=== PATIENT | male | born 1970 | race Caucasian/White ===

== ENCOUNTER 2025-01-14 22:38 | Inpatient (IN) | payer BC, OTHER ==
[2025-01-14] MEDS: ASPIRIN 81 MG PO STA (22:59)
[2025-01-14] MEDS: NITROGLYCERIN SL TABS 0.4 MG TAB SUBLINGUAL STA ×2 (22:59→23:18)
[2025-01-14] MEDS: METOPROLOL TARTRATE 25 MG TAB PO STA (23:00)
[2025-01-14] MEDS: SODIUM CHLORIDE 0.9% 500 ML 500 ML IV STA (23:03)
--- NOTE | 2025-01-14 23:04 | ED ---
Chest Pain HPI - General Chief Complaint: Chest Pain Stated Complaint: Chest pain Time Seen by Provider: 01/14/25 22:46 Source: patient Mode of arrival: ambulatory Limitations: no limitations - History of Present Illness Initial Comments: This patient is 54-year-old man with history of previous MO at age 43, who presents with complaint that he believes he is having another MO. He states that he started walking tonight and about 20 minutes ago developed substernal chest pain that does radiate to his neck into his left arm. He was feeling short of breath and also sweaty. The patient proceeded to come here. He continues to have the chest pain. The patient states that he is a heavy smoker. The patient notes that over the preceding 2 to 3 days with exertion he has had similar pain though mild and not sustained has tonight's episode. MD Complaint: chest pain Onset/Timin -: minutes(s) Onset: during exertion Pain Location: substernal Pain Radiation: LUE, neck Severity: severe Quality: aching, heaviness Consistency: constant Improves With: nothing Anginal Symptoms: diaphoresis, dyspnea - Related Data Previous Rx's Medication Instructions Recorded Aspirin 81 mg PO DAILY tab 01/18/25 Atorvastatin [Lipitor] 80 mg PO DAILY 7 Days #7 tab 01/18/25 Dapagliflozin Propanediol [Farxiga] 10 mg PO DAILY 7 Days #7 tab 01/18/25 Losartan [Cozaar] 12.5 mg PO DAILY 7 Days #7 tab 01/18/25 Metoprolol Tartrate [Lopressor] 25 mg PO BID 7 Days #14 tab 01/18/25 Nitroglycerin Sl Tabs [Nitrostat] 0.4 mg SUBLINGUAL Q5M PRN #10 tab 01/18/25 Ticagrelor [Brilinta] 90 mg PO BID 7 Days #14 tab 01/18/25 metFORMIN HCL [Glucophage] 500 mg PO BID-W/MEALS 7 Days #14 01/18/25 tab Allergies Allergy/AdvReac Type Severity Reaction Status Date / Time erythromycin base AdvReac Rash/Hives Verified 01/15/25 10:00 Review of Systems ROS Statement: Those systems with pertinent positive or pertinent negative responses have been documented in the HPI. ROS Other: All systems not noted in ROS Statement are negative. Constitutional: Denies: fever, chills, weakness Respiratory: Denies: cough, dyspnea Cardiovascular: Reports: chest pain. Denies: palpitations, orthopnea, edema, syncope Gastrointestinal: Reports: nausea. Denies: abdominal pain, vomiting Genitourinary: Denies: dysuria, hematuria Musculoskeletal: Denies: back pain Skin: Denies: rash Neurological: Denies: headache, weakness, numbness Past Medical History Past Medical History: Chest Pain / Angina, Hyperlipidemia, Hypertension, Myocardial Infarction (MO) Last Myocardial Infarction Date:: Pt states he had MO 05/2012. History of Any Multi-Drug Resistant Organisms: None Reported Past Surgical History: Heart Catheterization Additional Past Surgical History / Comment(s): Hx cardiac cath 05/2012. Past Anesthesia/Blood Transfusion Reactions: No Reported Reaction Past Psychological History: No Psychological Hx Reported Smoking Status: Current every day smoker Past Alcohol Use History: Occasional Past Drug Use History: None Reported - Past Family History Father Family Medical History: Coronary Artery Disease (CAD) Additional Family Medical History / Comment(s): Father at 51 from cardiomyopathy. Mother Family Medical History: No Reported History Additional Family Medical History / Comment(s): Mother is 63 yrs old. General Exam Limitations: no limitations General appearance: alert, in no apparent distress Head exam: Present: atraumatic, normocephalic Eye exam: Present: normal appearance. Absent: scleral icterus, conjunctival injection ENT exam: Present: normal oropharynx Neck exam: Present: normal inspection Respiratory exam: Present: normal lung sounds bilaterally. Absent: respiratory distress, wheezes, rales, rhonchi, stridor, accessory muscle use Cardiovascular Exam: Present: regular rate, normal rhythm, normal heart sounds. Absent: systolic murmur, diastolic murmur, rubs, gallop GI/Abdominal exam: Present: soft. Absent: distended, tenderness, guarding, rebound, rigid, mass Extremities exam: Present: normal inspection, normal capillary refill. Absent: pedal edema, calf tenderness Back exam: Present: normal inspection. Absent: CVA tenderness (R), CVA tenderness (L) Neurological exam: Present: alert Skin exam: Present: warm, dry, intact, normal color. Absent: rash Course Vital Signs 01/14/25 01/14/25 01/15/25 22:39 23:20 00:27 Temperature 98 F Pulse Rate 127 H 105 H 106 H Respiratory 18 18 18 Rate Blood Pressure 164/108 118/68 137/89 O2 Sat by Pulse 96 94 L 94 L Oximetry Chest Pain MDM - MDM The patient's initial twelve-lead ECG shows rhythm of sinus tachycardia rate 121 bpm. Normal axis. The patient does have pattern concerning for posterior MO, there are ST depressions in leads V2 through V4. The case is discussed with Dr. Billingsley. The patient receiving medications and we are performing posterior twelve-lead ECG to discuss with cardiology upon completion. The patient had chest x-ray that I interpreted as negative for acute infiltrate, pneumothorax, congestive heart failure Was pt. sent in by a medical professional or institution (, PA, CIVIL DRAFTSMAN, urgent care, hospital, or [facility]...) When possible be specific @ -[No] Did you speak to anyone other than the patient for history (EMS, parent, family, police, friend...)? What history was obtained from this source @ -[No] Did you review nursing and triage notes (agree or disagree)? Why? @ -[I reviewed and agree with nursing and triage notes] Were old charts reviewed (outside hosp., previous admission, EMS record, old EKG, old radiological studies, urgent care reports/EKG's, [facility] records)? Report findings @ -[No old charts were reviewed] Differential Diagnosis (chest pain, altered mental status, abdominal pain women, abdominal pain men, vaginal bleeding, weakness, fever, dyspnea, syncope, headache, dizziness, GI bleed, back pain, seizure, CVA, palpatations, mental health, musculoskeletal)? @ -[Differential Chest Pain: Stable Angina, Unstable Angina, STEMI, NSTEMI Aortic Dissection, Pneumothorax, Musculoskeletal, Esophageal Spasm GERD, Cholecystitis, Pancreatitis, Zoster, this is not meant to be an all-inclusive list. EKG interpreted by me (3pts min.). @ -[I interpreted as above] X-rays interpreted by me (1pt min.). @ -[I interpreted as above CT interpreted by me (1pt min.). @ -[None done] U/S interpreted by me (1pt. min.). @ -[None done] What testing was considered but not performed or refused? (CT, X-rays, U/S, labs)? Why? @ -[None] What meds were considered but not given or refused? Why? @ -[None] Did you discuss the management of the patient with other professionals (professionals i.e. DrIvan, PA, CIVIL DRAFTSMAN, lab, RT, psych nurse, social work associate, instrument technician, teacher, chief juvenile probation officer, director of casework)? Give summary @ -[No] Was smoking cessation discussed for >3mins.? @ -[No] Was critical care preformed (if so, how long)? @ -[Yes, 35 minutes Were there social determinants of health that impacted care today? How? (Homelessness, low income, unemployed, alcoholism, drug addiction, transportation, low edu. Level, literacy, decrease access to med. care, residential, rehab)? @ -[No] Was there de-escalation of care discussed even if they declined (Discuss DNR or withdrawal of care, Hospice)? DNR status @ -[No] What co-morbidities impacted this encounter? (DM, HTN, Smoking, COPD, CAD, Cancer, CVA, ARF, Chemo, Hep., AIDS, mental health diagnosis, sleep apnea, morbid obesity)? @ -[Active smoking. History of CAD Was patient admitted / discharged? Hospital course, mention meds given and route, prescriptions, significant lab abnormalities, going to OR and other pertinent info. @ -[Patient is 54-year-old man here with chest pain concerning for acute coronary syndrome. Case discussed with cardiology and as the patient continued to have chest pain he was taken to the [facility]. Undiagnosed new problem with uncertain prognosis? @ -[No] Drug Therapy requiring intensive monitoring for toxicity (Heparin, Nitro, Insulin, Cardizem)? @ -[Heparin Were any procedures done? @ -[No] Diagnosis/symptom? @ -Acute coronary syndrome NSTEMI Hyperglycemia in diabetic patient Acute, or Chronic, or Acute on Chronic? @ -[Acute Uncomplicated (without systemic symptoms) or Complicated (systemic symptoms)? @ -[Uncomplicated Side effects of treatment? @ -[No] Exacerbation, Progression, or Severe Exacerbation? @ -[No] Poses a threat to life or bodily function? How? (Chest pain, USA, MO, pneumonia, PE, COPD, DKA, ARF, appy, cholecystitis, CVA, Diverticulitis, Homicidal, Suicidal, threat to staff... and all critical care pts) @ -[Yes required cardiology acute intervention All treatments are based on ideal body weight as in ED triage Disposition Clinical Impression: NSTEMI (non-ST elevated myocardial infarction), Acute coronary syndrome, Hyperglycemia Disposition: ADMITTED IP TO THIS HOSP
[2025-01-14 23:07] LABS: Basophils # (A) 0.10 10*3/uL (0.00-0.10); Basophils % (A) 1.0 %; Eosinophils # (A) 0.25 10*3/uL (0.04-0.35); Eosinophils % (A) 2.4 %; HCT 44.4 % (39.6-50.0); HGB 15.8 g/dL (13.0-17.0); Lymphocytes # (A) 3.59 10*3/uL (0.90-5.00); Lymphocytes % (A) 34.9 %; MCH 31.5 pg (27.0-32.0); MCHC 35.6 g/dL (32.0-37.0); MCV 88.6 fL (80.0-97.0); Monocytes # (A) 1.13 10*3/uL (0.20-1.00); Monocytes % (A) 11.0 %; Neutrophils # (A) 5.15 10*3/uL (1.80-7.70); Neutrophils % (A) 50.1 %; Platelet Count 211 10*3/uL (140-440); RBC 5.01 10*6/uL (4.40-5.60); RDW 13.2 % (11.5-14.5); WBC 10.28 10*3/uL (4.50-10.00)
[2025-01-14] MEDS ORDERED: HEPARIN SODIUM 1,000 UN/ML (10ML VL) IV PRN (23:11)
[2025-01-14] MEDS: METOPROLOL TARTRATE 5 MG/5 ML VIAL IVP SCH (23:16)
[2025-01-14 23:17] LABS: INR 0.9 (<1.2); Partial Thromboplastin Time 24.1 sec (22.0-30.0); Prothrombin Time 9.9 sec (10.0-12.5)
[2025-01-14 23:20] LABS: ALT 26 U/L (4-49); AST 29 U/L (17-59); African American GFR (CKD) >90 (>60 ml/min/1.73 sqM); Albumin 4.6 g/dL (3.5-5.0); Alkaline Phosphatase 111 U/L (38-126); Anion Gap 18 mmol/L; Blood Urea Nitrogen 10 mg/dL (9-20); Calcium 9.8 mg/dL (8.4-10.2); Carbon Dioxide 19 mmol/L (22-30); Chloride 96 mmol/L (98-107); Glucose 414 mg/dL (74-99); Magnesium 1.8 mg/dL (1.6-2.3); Non-African American GFR(CKD) >90 (>60 ml/min/1.73 sqM); Potassium 4.4 mmol/L (3.5-5.1); Sodium 133 mmol/L (137-145); Total Protein 7.2 g/dL (6.3-8.2)
[2025-01-14] MEDS: HEPARIN SOD,PORK IN 0.45% NACL 25,000 UNIT in 0.45% NACL 1 250ML.BAG IV SCH (23:46)
[2025-01-14] MEDS: HEPARIN SODIUM 1,000 UN/ML (10ML VL) IV ONE (23:50)
[2025-01-14] MEDS: NITROGLYCERIN-D5W PMX 50 MG in DEXTROSE/WATER 1 250ML.BAG IV ONE (23:51)
--- NOTE | 2025-01-15 00:17 | XR ---
EXAM: XR Chest, 1 View CLINICAL HISTORY: left arm pain, chest pain, neck pain that started 10 mins ago chest pain TECHNIQUE: Frontal view of the chest. COMPARISON: No relevant prior studies available. FINDINGS: Lungs: Subtle patchy airspace opacities over bilateral middle and lower lung zones. Lungs are slightly underinflated. Pleural space: Unremarkable. Mediastinum: Unremarkable. Normal mediastinal contour. Bones/joints: No acute findings. IMPRESSION: Subtle patchy airspace opacities over bilateral middle and lower lung zones can represent atelectasis and/or pneumonia.
[2025-01-15] MEDS: MORPHINE SULFATE 4 MG/ML SYRINGE IV STA (00:49)
--- NOTE | 2025-01-15 00:53 | P.CRDCN ---
History of Present Illness History of present illness: HISTORY OF PRESENTING ILLNESS This is a pleasant 54-year-old with past medical history significant for CAD status post PCI with NH 2013, hypertension, hyperlipidemia. He presents secondary to acute onset of chest pain radiating to his neck and down his left arm with associated shortness of breath and diaphoresis. This occurred when he was walking and approximately 20 minutes prior to arrival. He admits this felt somewhat similar to his prior NH. He denies any other symptoms recently and denies any fevers, chills, cough. EKG showed sinus tachycardia with diffuse ST depressions V4 through V6. Initially was improved to a 3 with giving nitroglycerin and metoprolol. Additionally his heparin pressures 60s over 100. He is still having ongoing chest pain. Troponin 0.3, creatinine 0.7, hemoglobin 15. He states he has not been taking any of his medications over the last 3 years. He is diabetic and does not take medications. He states he ran out a few years ago and then never started taking them again. He does not follow with a doctor. He states he has been having off-and-on symptoms over the last 1 year usually mostly with exertion however over the last 2 weeks has been having more episodes. He does smoke 2 packs/day. REVIEW OF SYSTEMS At the time of my exam: CONSTITUTIONAL: Denies fever or chills. CARDIOVASCULAR: +chest pain, +shortness of breath, no orthopnea, PND or palpitations. RESPIRATORY: Denies cough. GASTROINTESTINAL: Denies abdominal pain, diarrhea, constipation, nausea or vomiting. MUSCULOSKELETAL: Denies myalgias. NEUROLOGIC: Denies numbness, tingling or weakness. ENDOCRINE: Denies fatigue, weight change, polydipsia or polyurina. GENITOURINARY: Denies burning, hematuria or urgency with micturation. HEMATOLOGIC: Denies history of anemia or bleeding. PHYSICAL EXAMINATION Vital signs reviewed. CONSTITUTIONAL: No apparent distress. HEENT: Head is normocephalic. Pupils are equal, round. Sclerae anicteric. Mucous membranes of the mouth are moist. No JVD. No carotid bruit. CHEST EXAMINATION: Lungs are clear to auscultation. No chest wall tenderness is noted on palpation or with deep breathing. HEART EXAMINATION: Regular rate and rhythm. S1, S2 heard. No murmurs, gallops or rub. ABDOMEN: Soft, nontender. Positive bowel sounds. EXTREMITIES: 2+ peripheral pulses, no lower extremity edema and no calf tenderness. NEUROLOGIC EXAMINATION: Patient is awake, alert and oriented x3. ASSESSMENT Non-STEMI with ongoing chest pain CAD status post PCI 2012 Hypertension Hyperlipidemia Diabetes mellitus type 2 Noncompliance Tobacco abuse Family history of CAD PLAN Patient with typical symptoms and EKG with diffuse ST depressions. He is having ongoing chest pain with type I non-STEMI despite aspirin, heparin, beta-lorraine and nitroglycerin. Therefore recommend urgent heart catheterization and patient agreeable. Check 2D echo. Further recommendations to follow. Past Medical History Past Medical History: Chest Pain / Angina, Hyperlipidemia, Hypertension, Myocardial Infarction (NH) Last Myocardial Infarction Date:: Pt states he had NH 05/2012. History of Any Multi-Drug Resistant Organisms: None Reported Past Surgical History: Heart Catheterization Additional Past Surgical History / Comment(s): Hx cardiac cath 05/2012. Past Anesthesia/Blood Transfusion Reactions: No Reported Reaction Past Psychological History: No Psychological Hx Reported Smoking Status: Current every day smoker Past Alcohol Use History: Occasional Past Drug Use History: None Reported - Past Family History Father Family Medical History: Coronary Artery Disease (CAD) Additional Family Medical History / Comment(s): Father at 51 from cardiomyopathy. Mother Family Medical History: No Reported History Additional Family Medical History / Comment(s): Mother is 63 yrs old. Medications and Allergies Home Medications Medication Instructions Recorded Confirmed Type Atorvastatin [Lipitor] 80 mg PO DAILY 03/21/14 03/21/14 History Clopidogrel [Plavix] 75 mg PO DAILY 03/21/14 03/21/14 History lisinopriL [Zestril] 10 mg PO DAILY 03/21/14 03/21/14 History Aspirin 325 mg PO DAILY #30 tab 03/22/14 Rx Isosorbide Mononitrate ER [Imdur] 30 mg PO DAILY #30 tab.er.24h 03/22/14 Rx Nitroglycerin Sl Tabs [Nitrostat] 0.4 mg SUBLINGUAL Q5M PRN #30 tab 03/22/14 Rx Allergies Allergy/AdvReac Type Severity Reaction Status Date / Time erythromycin base AdvReac Rash/Hives Verified 01/14/25 22:41 Physical Exam Vitals: Vital Signs Temp Pulse Resp BP Pulse Ox 01/15/25 00:27 106 H 18 137/89 94 L 01/14/25 23:20 105 H 18 118/68 94 L 01/14/25 22:39 98 F 127 H 18 164/108 96 Intake and Output 01/14/25 01/14/25 01/15/25 14:59 22:59 06:59 Other: Weight 108.862 kg Results 01/14/25 22:52 01/14/25 22:52 Cardiac Enzymes 01/14/25 01/14/25 Range/Units 22:52 22:52 AST 29 (17-59) U/L Troponin I 0.342 H* (0.000-0.034) ng/mL Coagulation 01/14/25 Range/Units 22:52 PT 9.9 L (10.0-12.5) sec APTT 24.1 (22.0-30.0) sec CBC 01/14/25 Range/Units 22:52 WBC 10.28 H (4.50-10.00) 10*3/uL RBC 5.01 (4.40-5.60) 10*6/uL Hgb 15.8 (13.0-17.0) g/dL Hct 44.4 (39.6-50.0) % Plt Count 211 (140-440) 10*3/uL Comprehensive Metabolic Panel 01/14/25 Range/Units 22:52 Sodium 133 L (137-145) mmol/L Potassium 4.4 (3.5-5.1) mmol/L Chloride 96 L (98-107) mmol/L Carbon Dioxide 19 L (22-30) mmol/L BUN 10 (9-20) mg/dL Creatinine 0.73 (0.66-1.25) mg/dL Glucose 414 H (74-99) mg/dL Calcium 9.8 (8.4-10.2) mg/dL AST 29 (17-59) U/L ALT 26 (4-49) U/L Alkaline Phosphatase 111 (38-126) U/L Total Protein 7.2 (6.3-8.2) g/dL Albumin 4.6 (3.5-5.0) g/dL Current Medications Generic Name Dose Route Start Last Admin Trade Name Freq PRN Reason Stop Dose Admin Heparin Sodium (Porcine) 0 unit 01/14/25 23:11 Heparin Sodium 1,000 Un/Ml (10ml Vl) IV PER PROTOCOL PRN Low PTT Protocol Heparin Sodium/Sodium Chloride 250 mls @ 10.004 mls/hr 01/14/25 23:15 01/14/25 23:46 25,000 unit/ Sodium Chloride IV 9.19 units/kg/hr .Q24H SEBASTIÁN 10.004 mls/hr Administration Protocol 9.19 UNITS/KG/HR Nitroglycerin/Dextrose 50 mg/ 250 mls @ 3 mls/hr 01/14/25 23:12 01/14/25 23:51 IV Solution IV 01/15/25 23:11 5 mcg/min .Q24H ONE 1.5 mls/hr Administration Protocol 10 MCG/MIN Intake and Output 01/14/25 01/14/25 01/15/25 14:59 22:59 06:59 Other: Weight 108.862 kg Patient Weight 01/15/25 06:59 Weight 108.862 kg 01/14/25 22:52 01/14/25 22:52
[2025-01-15] MEDS: fentaNYL (PF) 50 MCG/1 ML VIAL IVP ONE (00:55)
[2025-01-15] MEDS: MIDAZOLAM 2 MG/2 ML VIAL IVP ONE (00:56)
[2025-01-15] MEDS: LIDOCAINE 1% INJ 10MG/ML (20 ML MDV) SQ ONE (00:57)
[2025-01-15] MEDS: SODIUM CHLORIDE 0.9% 1,000 ML IV ONE (00:58)
[2025-01-15] MEDS: VERAPAMIL SYRINGE (5 MG/10 ML) INTRAARTER ONE (01:02)
[2025-01-15] MEDS: HEPARIN SODIUM 1,000 UN/ML (10ML VL) IVP ONE (01:06)
[2025-01-15] MEDS: TICAGRELOR 90 MG TAB PO ONE (01:20)
[2025-01-15] MEDS: NITROGLYCERIN 1000MCG/10ML SYRINGE INTRACORON ONE (01:39)
[2025-01-15] MEDS: HEPARIN SODIUM,PORCINE 10,000 UNIT in SODIUM CHLORIDE 0.9% 1,000 ML IRRIGATION ONE (01:44)
[2025-01-15] MEDS: HEPARIN SODIUM,PORCINE (1 ML) 2,500 UNIT in SODIUM CHLORIDE 0.9% 250 ML IRRIGATION ONE (01:45)
[2025-01-15] MEDS: IOPAMIDOL-370 100ML BTL INJ ONE ×2 (01:47→01:48)
[2025-01-15] MEDS ORDERED: ZOLPIDEM 5 MG TAB PO PRN (01:57)
[2025-01-15] MEDS ORDERED: RX INFO: IV CONTRAST WAS GIVEN 1 EACH MISC MISCELLANE PRN (01:57)
[2025-01-15] MEDS ORDERED: ATROPINE SULFATE 0.1 MG/ML 10ML SYRINGE IV PRN (01:57)
[2025-01-15] MEDS ORDERED: MAG HYDROX/AL HYDROX/SIMETH 30 ML CUP PO PRN (01:57)
--- NOTE | 2025-01-15 01:58 | P.PRCINT ---
Percutaneous Coronary Int. - Percutaneous Coronary Intervention Percutaneous Coronary Intervention: PROCEDURES PERFORMED: Left heart catheterization, bilateral coronary angiography, ultrasound guided arterial access, PCI distal RCA into the PDA with a 3.0 x 33 mm Xience CORWIN, postdilated with a 3.5 mm noncompliant balloon. Penumbra aspiration thrombectomy RCA. Intravascular ultrasound RCA. INDICATION: Non-STEMI with ongoing chest pain CONSENT:I have discussed the risks, benefits and alternative therapies for the above-mentioned procedure and for both sedation/analgesia as well as necessary blood product administration, if indicated, as they pertain to this patient. The patient has indicated understanding and acceptance of the risks and procedures discussed. PROCEDURE: After the risks, benefits and alternatives of the above mentioned procedure explained in detail with the patient, informed consent was obtained. Patient was taken to the catheterization lab and prepped and draped in usual fashion. Ultrasound guidance was used to assess for arterial access. 1% lidocaine was used to anesthetize the right radial artery. A 6-Norwegian sheath was placed in the right radial artery using modified Seldinger technique and ultrasound guidance. Left coronary angiography was performed with a 5-Norwegian JL 3.5 catheter and right coronary angiography was performed with a 5-Norwegian FR5 catheter in various views. A 5-Norwegian FR5 catheter was inserted into the left ventricle and pressure measurements were obtained. The decision was made to perform PCI of the RCA. Heparin was given. A 6 Norwegian AL 0.75 guide was used to engage the RCA. A 0.014 BMW wire was advanced into the distal PDA and attempted to be advanced into the PLV however appeared to be TAX SENIOR ASSOCIATE with collaterals to the PLV from the left sided system. Penumbra aspiration thrombectomy was performed x 1 pass. Predilation was performed with 3.0 mm balloon. Intravascular ultrasound showed diffuse disease throughout the entire artery with most normal area 3.5 mm proximally and 3.0 mm distally past the PDA. A 3.0 x 33 mm drug-eluting stent was placed from the distal RCA into the PDA. Intravascular ultrasound showed well-expanded stent distally however some underexpansion proximally. The proximal and mid portions of the stent were postdilated with a 3.5 mm noncompliant balloon. Final angiograms were performed. Preintervention there was 99% stenosis and BING I flow and postintervention there was less than 10% stenosis and BING-3 flow. The right radial sheath was removed and a TR band was placed with hemostasis achieved. The patient tolerated the procedure well. Patient was transported back to the post catheterization holding area in stable condition. Conscious Sedation: Patient was monitored under the direct supervision of myself for conscious sedation using Versed and fentanyl for a total duration of 45 minutes HEMODYNAMICS: Aorta: 118/72 LV: 115/5, LVEDP 16 SELECTIVE CORONARY ARTERIOGRAPHY: LEFT MAIN: The left main is a large caliber vessel which bifurcates into the LAD and circumflex. There is distal left main 40% stenosis. LEFT ANTERIOR DESCENDING CORONARY ARTERY: LAD is a large caliber vessel which wraps around to the apex. There is diffuse disease of the proximal and mid LAD with more focal mid LAD 95% stenosis at the site of a moderate caliber diagonal 1 branch. Otherwise there is mild diffuse 20 to 30% stenosis. LEFT CIRCUMFLEX CORONARY ARTERY: Left circumflex is a moderate caliber vessel w ith 30 to 40% stenosis. There are [id number] collaterals to the PLV RIGHT CORONARY ARTERY: The right coronary artery is a large caliber vessel which gives off a PDA and PLV branch and is the dominant vessel. There is diffuse 20 to 30% stenosis and more focal tandem 95% and 99% stenosis of the distal RCA just prior to the bifurcation of the PLV. The PLV has 100% stenosis with what appears to be collaterals from the left to right. FINAL IMPRESSION: 1. CAD as described above including left main 40% stenosis, mid LAD 95% bifurcation stenosis, 99% RCA stenosis, 100% PLV stenosis with [id number] collaterals. 2. Normal left sided filling pressures 3. Status post PCI distal RCA into the PDA with a 3.0 x 33 mm Xience CORWIN, postdilated with a 3.5 mm noncompliant balloon PLAN: 1. Aggressive risk factor modification per most recent ACC/AHA guidelines. 2. Continue aspirin and Brilinta for 12 months 3. Staged PCI of LAD/further assessment of left main disease however appears to be left main 40% stenosis 4. Tobacco cessation discussed in detail with patient. Gave patient information on [email or web address] quit line. 5. Goal LDL less than 70
[2025-01-15 02:01] LABS: Glucose,Whole Blood 364 mg/dL (70-110)
[2025-01-15] MEDS: SODIUM CHLORIDE 0.9% 1,000 ML in EMPTY BAG 1 BAG IV SCH (03:28)
[2025-01-15 03:36] LABS: Basophils # (A) 0.07 10*3/uL (0.00-0.10); Basophils % (A) 0.9 %; Eosinophils # (A) 0.16 10*3/uL (0.04-0.35); Eosinophils % (A) 2.0 %; HCT 40.0 % (39.6-50.0); HGB 13.7 g/dL (13.0-17.0); Lymphocytes # (A) 2.35 10*3/uL (0.90-5.00); Lymphocytes % (A) 29.9 %; MCH 31.4 pg (27.0-32.0); MCHC 34.3 g/dL (32.0-37.0); MCV 91.7 fL (80.0-97.0); Monocytes # (A) 0.64 10*3/uL (0.20-1.00); Monocytes % (A) 8.2 %; Neutrophils # (A) 4.58 10*3/uL (1.80-7.70); Neutrophils % (A) 58.4 %; Platelet Count 176 10*3/uL (140-440); RBC 4.36 10*6/uL (4.40-5.60); RDW 13.0 % (11.5-14.5); WBC 7.85 10*3/uL (4.50-10.00)
[2025-01-15 04:02] LABS: INR 0.9 (<1.2); Prothrombin Time 10.4 sec (10.0-12.5)
[2025-01-15 05:33] LABS: Partial Thromboplastin Time >200.0 sec (22.0-30.0)
[2025-01-15 06:59] LABS: Glucose,Whole Blood 359 mg/dL (70-110)
[2025-01-15] MEDS: INSULIN LISPRO (HumaLOG) 100 UNIT/ML 10 mL VL SQ SCH (07:01)
[2025-01-15] MEDS: LOSARTAN 25 MG TAB PO SCH (09:00)
[2025-01-15] MEDS: TICAGRELOR 90 MG TAB PO SCH (09:00)
[2025-01-15] MEDS: ASPIRIN 81 MG PO SCH (09:00)
[2025-01-15] MEDS: ATORVASTATIN 80 MG TAB PO SCH (09:00)
[2025-01-15] MEDS: METOPROLOL TARTRATE 25 MG TAB PO SCH (09:00)
[2025-01-15 11:08] LABS: Glucose,Whole Blood 270 mg/dL (70-110)
--- NOTE | 2025-01-15 12:03 | P.HPIM ---
History of Present Illness Patient pleasant 54-year-old male came with complaints of chest pain which is typical in nature patient has EKG findings from V4-V6 which is ST depressions. Patient has mildly elevated troponin of 0.342. Because of continued chest pain patient was taken to [facility] Installer Helper and was found to have left main 40% stenosis and mid LAD 95% stenosis at bifurcation, 99% stenosis of RCA 100% PLV stenosis with [id number] collaterals. Patient underwent a PCI of distal RCA into PDA. Patient is presently on dual antiplatelet therapy statin PIERRE inhibitor. Plan is staged intervention. Patient had history of coronary artery disease but never h ad any stents in the past. Patient does smoke and extensive smoking cessation counseling was provided. REVIEW OF SYSTEMS: All other systems are negative except those mentioned in the HPI PHYSICAL EXAMINATION: GENERAL: The patient is alert and oriented x3, not in any acute distress. Well developed, well nourished. HEENT: Pupils are round and equally reacting to light. EOMI. No scleral icterus. No conjunctival pallor. Normocephalic, atraumatic. No pharyngeal erythema. No thyromegaly. CARDIOVASCULAR: S1 and S2 present. No murmurs, rubs, or gallops. PULMONARY: Chest is clear to auscultation, no wheezing or crackles. ABDOMEN: Soft, nontender, nondistended, normoactive bowel sounds. No palpable organomegaly. MUSCULOSKELETAL: No joint swelling or deformity. EXTREMITIES: No cyanosis, clubbing, or pedal edema. NEUROLOGICAL: Gross neurological examination did not reveal any focal deficits. SKIN: No rashes. Assessment and plan -Acute non-ST elevation myocardial infarction: Patient is status post cardiac catheterization and stenting to distal RCA. Patient is on aspirin Brilinta, PIERRE inhibitor, Lipitor, beta-lorraine. Pending echocardiogram - Elevated blood sugars patient is probably diabetic which was undiagnosed patient will be continued on sliding scale insulin will obtain hemoglobin A1c - Hypertension - Hyperlipidemia DVT prophylaxis: Early ambulation Past Medical History Past Medical History: Chest Pain / Angina, Diabetes Mellitus, Hyperlipidemia, Hypertension, Myocardial Infarction (LA) Last Myocardial Infarction Date:: Pt states he had LA 05/2012. History of Any Multi-Drug Resistant Organisms: None Reported Past Surgical History: Heart Catheterization Additional Past Surgical History / Comment(s): Hx cardiac cath 05/2012. Past Anesthesia/Blood Transfusion Reactions: No Reported Reaction Past Psychological History: No Psychological Hx Reported Smoking Status: Current every day smoker Past Alcohol Use History: Occasional Additional Past Alcohol Use History / Comment(s): Pt states he has 6 beers a week. Past Drug Use History: None Reported - Past Family History Father Family Medical History: Coronary Artery Disease (CAD) Additional Family Medical History / Comment(s): Father at 51 from cardiomyopathy. Mother Family Medical History: No Reported History Additional Family Medical History / Comment(s): Mother is 63 yrs old. Medications and Allergies Home Medications Medication Instructions Recorded Confirmed Type No Known Home Medications 01/15/25 01/15/25 History Allergies Allergy/AdvReac Type Severity Reaction Status Date / Time erythromycin base AdvReac Rash/Hives Verified 01/15/25 10:00 Physical Exam Vitals: Vital Signs Temp Pulse Resp BP Pulse Ox 01/15/25 09:00 91 10 L 135/88 96 01/15/25 08:00 98.2 F 92 24 123/79 93 L 01/15/25 07:00 92 18 133/70 97 01/15/25 06:00 91 14 110/66 96 01/15/25 05:00 86 12 119/75 95 01/15/25 04:00 98.2 F 89 19 113/67 95 01/15/25 03:00 98.2 F 93 15 113/76 95 01/15/25 02:04 100 16 96 01/15/25 00:27 106 H 18 137/89 94 L 01/14/25 23:20 105 H 18 118/68 94 L 01/14/25 22:39 98 F 127 H 18 164/108 96 Intake and Output 01/14/25 01/15/25 01/15/25 22:59 06:59 14:59 Intake Total 956.323 7552 Output Total 1100 1100 Balance -229.058 -2 Intake: IV 300 Intake, IV Titration 570.942 218 Amount Heparin Sod,Pork in 0.45% 22.342 NaCl 25,000 unit In 0.45 % NaCl 1 250ml.bag @ 9.19 UNITS/KG/HR 10.004 mls/ hr IV .Q24H [facility] Rx#: [id number] Nitroglycerin-D5w Pmx 50 3.6 mg In Dextrose/Water 1 250ml.bag @ 10 MCG/MIN 3 mls/hr IV .Q24H [facility] Rx#: [id number] Sodium Chloride 0.9% 1, 545 218 000 ml In Empty Bag 1 bag @ 1 ML/KG/HR 108.862 mls /hr IV .Q9H12M [facility] Rx#: [id number] Oral 880 Output: Urine 1100 1100 Other: Voiding Method Urinal Urinal Weight 108.862 kg 109.4 kg Results CBC & Chem 7: 01/15/25 02:44 01/14/25 22:52 Labs: Abnormal Lab Results - Last 24 Hours (Table) 01/14/25 01/14/25 01/14/25 Range/Units 22:52 22:52 22:52 WBC 10.28 H (4.50-10.00) 10*3/uL RBC (4.40-5.60) 10*6/uL Immature Gran # 0.06 H (0.00-0.04) 10*3/uL Monocytes # 1.13 H (0.20-1.00) 10*3/uL PT 9.9 L (10.0-12.5) sec APTT (22.0-30.0) sec Sodium 133 L (137-145) mmol/L Chloride 96 L (98-107) mmol/L Carbon Dioxide 19 L (22-30) mmol/L Glucose 414 H (74-99) mg/dL POC Glucose (mg/dL) (70-110) mg/dL Troponin I (0.000-0.034) ng/mL 01/14/25 01/15/25 01/15/25 Range/Units 22:52 01:59 02:44 WBC (4.50-10.00) 10*3/uL RBC 4.36 L (4.40-5.60) 10*6/uL Immature Gran # 0.05 H (0.00-0.04) 10*3/uL Monocytes # (0.20-1.00) 10*3/uL PT (10.0-12.5) sec APTT (22.0-30.0) sec Sodium (137-145) mmol/L Chloride (98-107) mmol/L Carbon Dioxide (22-30) mmol/L Glucose (74-99) mg/dL POC Glucose (mg/dL) 364 H (70-110) mg/dL Troponin I 0.342 H* (0.000-0.034) ng/mL 01/15/25 01/15/25 01/15/25 Range/Units 02:44 06:58 11:07 WBC (4.50-10.00) 10*3/uL RBC (4.40-5.60) 10*6/uL Immature Gran # (0.00-0.04) 10*3/uL Monocytes # (0.20-1.00) 10*3/uL PT (10.0-12.5) sec APTT >200.0 H* (22.0-30.0) sec Sodium (137-145) mmol/L Chloride (98-107) mmol/L Carbon Dioxide (22-30) mmol/L Glucose (74-99) mg/dL POC Glucose (mg/dL) 359 H 270 H (70-110) mg/dL Troponin I (0.000-0.034) ng/mL Thrombosis Risk Factor Assmnt - Choose All That Apply Each Factor Represents 1 point: Age 41-60 years, Obesity (BMI >25) Thrombosis Risk Factor Assessment Total Risk Factor Score: 2 Thrombosis Risk Factor Assessment Level: Low Risk
[2025-01-15 16:17] LABS: Glucose,Whole Blood 357 mg/dL (70-110)
[2025-01-15 20:34] LABS: Glucose,Whole Blood 270 mg/dL (70-110)
[2025-01-16 06:16] LABS: Glucose,Whole Blood 257 mg/dL (70-110)
[2025-01-16 06:55] LABS: HCT 40.3 % (39.6-50.0); HGB 13.9 g/dL (13.0-17.0); MCH 31.5 pg (27.0-32.0); MCHC 34.5 g/dL (32.0-37.0); MCV 91.4 fL (80.0-97.0); Platelet Count 141 10*3/uL (140-440); RBC 4.41 10*6/uL (4.40-5.60); RDW 13.4 % (11.5-14.5); WBC 7.85 10*3/uL (4.50-10.00)
[2025-01-16 07:05] LABS: African American GFR (CKD) >90 (>60 ml/min/1.73 sqM); Anion Gap 8 mmol/L; Blood Urea Nitrogen 9 mg/dL (9-20); Calcium 8.8 mg/dL (8.4-10.2); Carbon Dioxide 24 mmol/L (22-30); Chloride 104 mmol/L (98-107); Glucose 257 mg/dL (74-99); Non-African American GFR(CKD) >90 (>60 ml/min/1.73 sqM); Potassium 3.9 mmol/L (3.5-5.1); Sodium 136 mmol/L (137-145)
[2025-01-16 11:26] LABS: Glucose,Whole Blood 304 mg/dL (70-110)
[2025-01-16] MEDS ORDERED: ALPRAZolam 0.25 MG TAB PO PRN (11:47)
[2025-01-16] MEDS ORDERED: NITROGLYCERIN SL TABS 0.4 MG TAB SUBLINGUAL PRN (11:47)
--- NOTE | 2025-01-16 11:48 | P.PN ---
Subjective Progress Note Date: 01/16/25 HISTORY OF PRESENTING ILLNESS This is a pleasant 54-year-old with past medical history significant for CAD status post PCI with [place] 2013, hypertension, hyperlipidemia. He presents secondary to acute onset of chest pain radiating to his neck and down his left arm with associated shortness of breath and diaphoresis. This occurred when he was walking and approximately 20 minutes prior to arrival. He admits this felt somewhat similar to his prior WA. He denies any other symptoms recently and denies any fevers, chills, cough. EKG showed sinus tachycardia with diffuse ST depressions V4 through V6. Initially was improved to a 3 with giving nitroglycerin and metoprolol. Additionally his heparin pressures 60s over 100. He is still having ongoing chest pain. Troponin 0.3, creatinine 0.7, hemoglobin 15. He states he has not been taking any of his medications over the last 3 years. He is diabetic and does not take medications. He states he ran out a few years ago and then never started taking them again. He does not follow with a doctor. He states he has been having off-and-on symptoms over the last 1 year usually mostly with exertion however over the last 2 weeks has been having more episodes. He does smoke 2 packs/day. Progress note 01/16/2025 Seen and examined at bedside this a.m. He underwent PCI of RCA yesterday. The heart cath did show residual 95% stenosis in mid LAD. At this time he reports feeling much better since the time of admission. No recurrent chest pain. He i s ambulating in the unit. Blood pressure heart rate are controlled with SBP 127/78, heart rate 75 bpm. Labs shows hemoglobin 13, BUN 9, creatinine 0.6. PHYSICAL EXAMINATION Vital signs reviewed. CONSTITUTIONAL: No apparent distress. HEENT: Head is normocephalic. Pupils are equal, round. Sclerae anicteric. Mucous membranes of the mouth are moist. No JVD. No carotid bruit. CHEST EXAMINATION: Lungs are clear to auscultation. No chest wall tenderness is noted on palpation or with deep breathing. HEART EXAMINATION: Regular rate and rhythm. S1, S2 heard. No murmurs, gallops or rub. ABDOMEN: Soft, nontender. Positive bowel sounds. EXTREMITIES: 2+ peripheral pulses, no lower extremity edema and no calf tenderness. NEUROLOGIC EXAMINATION: Patient is awake, alert and oriented x3. ASSESSMENT Non-STEMI with ongoing chest pain. Status post PCI to distal RCA. Residual 95% mid LAD stenosis CAD status post PCI 2012 Hypertension Hyperlipidemia Diabetes mellitus type 2 Noncompliance Tobacco abuse Family history of CAD PLAN Continue aspirin, Lipitor, Brilinta Continue metoprolol 25 twice daily Losartan 12.5 mg daily Await echo result Plan for staged PCI of LAD tomorrow with Dr. Billingsley Recommend complete smoking cessation Objective - Vital Signs Vital signs: Vital Signs Temp 97.5 F L 01/16/25 09:25 Pulse 75 01/16/25 09:25 Resp 18 01/16/25 09:25 BP 125/78 01/16/25 09:25 Pulse Ox 96 01/16/25 09:25 FiO2 100 01/15/25 12:00 Intake & Output 01/15/25 01/16/25 01/16/25 18:59 06:59 18:59 Intake Total 1338 237 118 Output Total 1100 Balance 238 237 118 Weight 102.4 kg Intake: Intake, IV Titration 218 Amount Sodium Chloride 0.9% 1, 218 000 ml In Empty Bag 1 bag @ 1 ML/KG/HR 108.862 mls /hr IV .Q9H12M [facility] Rx#: [id number] Oral 1120 237 118 Output: Urine 1100 Other: Voiding Method Urinal Toilet Urinal # Voids 2 - Labs CBC & Chem 7: 01/16/25 06:25 01/16/25 06:25 Labs: Abnormal Lab Results - Last 24 Hours (Table) 01/15/25 01/15/25 01/15/25 Range/Units 02:44 16:16 20:33 Sodium (137-145) mmol/L Creatinine (0.66-1.25) mg/dL Glucose (74-99) mg/dL POC Glucose (mg/dL) 357 H 270 H (70-110) mg/dL Hemoglobin A1c 13.3 H (<=6.0) % 01/16/25 01/16/25 01/16/25 Range/Units 06:14 06:25 11:24 Sodium 136 L (137-145) mmol/L Creatinine 0.61 L (0.66-1.25) mg/dL Glucose 257 H (74-99) mg/dL POC Glucose (mg/dL) 257 H 304 H (70-110) mg/dL Hemoglobin A1c (<=6.0) %
--- NOTE | 2025-01-16 13:28 | P.PN ---
Subjective Patient pleasant 54-year-old male came with complaints of chest pain which is typical in nature patient has EKG findings from V4-V6 which is ST depressions. Patient has mildly elevated troponin of 0.342. Because of continued chest pain patient was taken to Systems Checkout Mechanic and was found to have left main 40% stenosis and mid LAD 95% stenosis at bifurcation, 99% stenosis of RCA 100% PLV stenosis with [id number] collaterals. Patient underwent a P CI of distal RCA into PDA. Patient is presently on dual antiplatelet therapy statin PIERRE inhibitor. Plan is staged intervention. Patient had history of coronary artery disease but never had any stents in the past. Patient does smoke and extensive smoking cessation counseling was provided. 01/16/25: Patient was seen at bedside, s/p cardiac catheterization day 1 he is feeling significantly better, up and pacing around his room. He is aware of plans for further cardiac intervention. He is tolerating recovery well. No complaints at this time. Denies chest pain, shortness of breath, palpitations, fever chills. REVIEW OF SYSTEMS: All other systems are negative except those mentioned in the HPI PHYSICAL EXAMINATION: GENERAL: The patient is alert and oriented x3, not in any acute distress. Well developed, well nourished. HEENT: Pupils are round and equally reacting to light. EOMI. No scleral icterus. No conjunctival pallor. Normocephalic, atraumatic. No pharyngeal erythema. No thyromegaly. CARDIOVASCULAR: S1 and S2 present. No murmurs, rubs, or gallops. PULMONARY: Chest is clear to auscultation, no wheezing or crackles. ABDOMEN: Soft, nontender, nondistended, normoactive bowel sounds. No palpable organomegaly. MUSCULOSKELETAL: No joint swelling or deformity. EXTREMITIES: No cyanosis, clubbing, or pedal edema. NEUROLOGICAL: Gross neurological examination did not reveal any focal deficits. SKIN: No rashes. Assessment and plan -Acute non-ST elevation myocardial infarction: Patient is status post cardiac catheterization and stenting to distal RCA. Patient is on aspirin Brilinta, PIERRE inhibitor, Lipitor, beta-lorraine. Pending echocardiogram - Elevated blood sugars patient is probably diabetic which was undiagnosed patient will be continued on sliding scale insulin will obtain hemoglobin A1c - Hypertension - Hyperlipidemia DVT prophylaxis: Early ambulation Objective - Vital Signs Vital signs: Vital Signs Temp 98.0 F 01/16/25 04:00 Pulse 70 01/16/25 04:00 Resp 18 01/16/25 04:00 BP 131/89 01/16/25 04:00 Pulse Ox 99 01/16/25 04:00 FiO2 100 01/15/25 12:00 Intake & Output 01/15/25 01/16/25 01/16/25 18:59 06:59 18:59 Intake Total 1338 237 Output Total 1100 Balance 238 237 Weight 102.4 kg Intake: Intake, IV Titration 218 Amount Sodium Chloride 0.9% 1, 218 000 ml In Empty Bag 1 bag @ 1 ML/KG/HR 108.862 mls /hr IV .Q9H12M [facility] Rx#: [id number] Oral 1120 237 Output: Urine 1100 Other: Voiding Method Urinal Toilet Urinal # Voids 2 - Labs CBC & Chem 7: 01/16/25 06:25 01/16/25 06:25 Labs: Abnormal Lab Results - Last 24 Hours (Table) 01/15/25 01/15/25 01/15/25 Range/Units 02:44 11:07 16:16 Sodium (137-145) mmol/L Creatinine (0.66-1.25) mg/dL Glucose (74-99) mg/dL POC Glucose (mg/dL) 270 H 357 H (70-110) mg/dL Hemoglobin A1c 13.3 H (<=6.0) % 01/15/25 01/16/25 01/16/25 Range/Units 20:33 06:14 06:25 Sodium 136 L (137-145) mmol/L Creatinine 0.61 L (0.66-1.25) mg/dL Glucose 257 H (74-99) mg/dL POC Glucose (mg/dL) 270 H 257 H (70-110) mg/dL Hemoglobin A1c (<=6.0) %
[2025-01-16 13:33] VITALS: BMI 28.2
--- NOTE | 2025-01-16 14:19 | CA ---
Transthoracic Echo Report Name: Matti Hernandez Age: 54 Gender: M : 1970 Exam Date: 01/16/2025 08:48 Exam Location: [facility] Ht (in): 73 Wt (lb): 240 Ordering Physician: Samuel Billingsley DO ([email or web address]) Attending/Referring Phys: Physician'S Aide Marguerite Stanford RDCS Procedure CPT: Indications: re: NSTEMI Cardiac Hx: Technical Quality: Fair Contrast 1: Total Dose (mL): Contrast 2: Total Dose (mL): MEASUREMENTS (Male / Female) Normal Values 2D ECHO LV Diastolic Diameter PLAX 5.4 cm 4.2 - 5.9 / 3.9 - 5.3 cm LV Systolic Diameter PLAX 4.2 cm IVS Diastolic Thickness 0.8 cm 0.6 - 1.0 / 0.6 - 0.9 cm LVPW Diastolic Thickness 1.3 cm 0.6 - 1.0 / 0.6 - 0.9 cm LV Relative Wall Thickness 0.4 LVOT Diameter 2.5 cm LV Diastolic Volume MOD BP 165.8 cm??? 67 - 155 / 56 - 104 cm??? LV Systolic Volume MOD BP 68.5 cm??? 22 - 58 / 19 - 49 cm??? LV Ejection Fraction MOD BP 58.7 % >= 55 % LV Cardiac Index MOD BP 3209.1 cm???/min???m??? LV Diastolic Volume MOD 4C 174.7 cm??? LV Systolic Volume MOD 4C 74.4 cm??? LV Ejection Fraction MOD 4C 57.4 % LV Cardiac Index MOD 4C 3306.1 cm???/min???m??? LV Diastolic Length 4C 9.2 cm LV Systolic Length 4C 7.5 cm LV Diastolic Volume MOD 2C 154.0 cm??? LV Systolic Volume MOD 2C 62.9 cm??? LV Ejection Fraction MOD 2C 59.1 % LV Cardiac Index MOD 2C 3002.7 cm???/min???m??? LV Diastolic Length 2C 8.9 cm LV Systolic Length 2C 7.5 cm LA Volume 56.6 cm??? 18 - 58 / 22 - 52 cm??? LA Volume Index 23.6 cm???/m??? 16 - 28 cm???/m??? Ascending Aorta Diameter 3.4 cm DOPPLER AV Peak Velocity 172.0 cm/s AV Peak Gradient 11.8 mmHg AV Mean Velocity 133.5 cm/s AV Mean Gradient 7.6 mmHg AV Velocity Time Integral 34.2 cm LVOT Peak Velocity 101.2 cm/s LVOT Peak Gradient 4.1 mmHg LVOT Velocity Time Integral 18.8 cm LVOT Stroke Volume 89.1 cm??? LVOT Stroke Volume Index 38.3 ml/m??? LVOT Cardiac Index 2937.7 cm???/min???m??? AV Area Cont Eq vti 2.6 cm??? AV Area Cont Eq pk 2.8 cm??? MV Area PHT 4.5 cm??? Mitral E Point Velocity 47.3 cm/s Mitral A Point Velocity 59.9 cm/s Mitral E to A Ratio 0.8 MV Deceleration Time 168.6 ms PV Peak Velocity 87.0 cm/s PV Peak Gradient 3.0 mmHg FINDINGS Left Ventricle Left ventricular ejection fraction is estimated at 50-55 %. Mildly increased left ventricular diastolic volume. Mildly increased left ventricular systolic volume. Left ventricular wall thickness normal. No obvious regional wall motion abnormalities. Right Ventricle Borderline enlarged right ventricle with normal function. Unable to estimate the right ventricular systolic pressure. Right Atrium Normal right atrial size. Left Atrium Normal left atrial size. Mitral Valve Structurally normal mitral valve. No evidence for mitral valve prolapse. No mitral stenosis. No mitral regurgitation. Aortic Valve Trileaflet aortic valve. No aortic valve stenosis or regurgitation. Tricuspid Valve Structurally normal tricuspid valve. No tricuspid stenosis. Trace tricuspid regurgitation. Pulmonic Valve Pulmonic valve not well visualized. No pulmonic stenosis. No pulmonic regurgitation. Pericardium No pericardial effusion. Aorta Normal size aortic root and proximal ascending aorta. CONCLUSIONS Reason for test: Non-STEMI Preserved LV size and function. No regional wall motion abnormalities ejection fraction greater than 55% Previewed by: Dr. Art De La Cruz MD (Electronically Signed) Final Date: 16 January 2025 14:18
[2025-01-16 16:26] LABS: Glucose,Whole Blood 309 mg/dL (70-110)
[2025-01-16 20:10] LABS: Glucose,Whole Blood 257 mg/dL (70-110)
[2025-01-17] MEDS: SODIUM CHLORIDE 0.9% 1,000 ML in EMPTY BAG 1 BAG IV SCH ×2 (03:07→16:46)
[2025-01-17 06:12] LABS: Glucose,Whole Blood 221 mg/dL (70-110)
[2025-01-17] MEDS ORDERED: HEPARIN SODIUM,PORCINE (1 ML) 2,500 UNIT in SODIUM CHLORIDE 0.9% 250 ML IRRIGATION PRN (07:00)
[2025-01-17] MEDS ORDERED: HEPARIN SODIUM,PORCINE 10,000 UNIT in SODIUM CHLORIDE 0.9% 1,000 ML IRRIGATION PRN (07:00)
[2025-01-17 08:08] LABS: Basophils # (A) 0.07 10*3/uL (0.00-0.10); Basophils % (A) 0.9 %; Eosinophils # (A) 0.19 10*3/uL (0.04-0.35); Eosinophils % (A) 2.5 %; HCT 38.8 % (39.6-50.0); HGB 13.7 g/dL (13.0-17.0); Lymphocytes # (A) 1.57 10*3/uL (0.90-5.00); Lymphocytes % (A) 20.8 %; MCH 32.4 pg (27.0-32.0); MCHC 35.3 g/dL (32.0-37.0); MCV 91.7 fL (80.0-97.0); Monocytes # (A) 0.96 10*3/uL (0.20-1.00); Monocytes % (A) 12.7 %; Neutrophils # (A) 4.70 10*3/uL (1.80-7.70); Neutrophils % (A) 62.4 %; Platelet Count 144 10*3/uL (140-440); RBC 4.23 10*6/uL (4.40-5.60); RDW 13.3 % (11.5-14.5); WBC 7.54 10*3/uL (4.50-10.00)
[2025-01-17 08:30] LABS: African American GFR (CKD) >90 (>60 ml/min/1.73 sqM); Anion Gap 8 mmol/L; Blood Urea Nitrogen 8 mg/dL (9-20); Calcium 8.7 mg/dL (8.4-10.2); Carbon Dioxide 25 mmol/L (22-30); Chloride 103 mmol/L (98-107); Glucose 237 mg/dL (74-99); Non-African American GFR(CKD) >90 (>60 ml/min/1.73 sqM); Potassium 4.0 mmol/L (3.5-5.1); Sodium 136 mmol/L (137-145)
[2025-01-17 11:39] LABS: Glucose,Whole Blood 225 mg/dL (70-110)
[2025-01-17 11:52] LABS: Magnesium 1.7 mg/dL (1.6-2.3)
--- NOTE | 2025-01-17 13:05 | P.PN ---
Subjective Patient pleasant 54-year-old male came with complaints of chest pain which is typical in nature patient has EKG findings from V4-V6 [address] ST depressions. Patient has mildly elevated troponin of 0.342. Because of continued chest pain patient was taken to Dermatological Surgeon and was found to have left main 40% stenosis and mid LAD 95% stenosis at bifurcation, 99% stenosis of RCA 100% PLV stenosis with [id number] collaterals. Patient underwent a P CI of distal RCA into PDA. Patient is presently on dual antiplatelet therapy statin PIERRE inhibitor. Plan is staged intervention. Patient had history of coronary artery disease but never had any stents in the past. Patient does smoke and extensive smoking cessation counseling was provided. 01/16/25: Patient was seen at bedside, s/p cardiac catheterization day 1 he is feeling significantly better, up and pacing around his room. He is aware of plans for further cardiac intervention. He is tolerating recovery well. No complaints at this time. Denies chest pain, shortness of breath, palpitations, fever chills. 01/17/2025: Pt seen at bedside, he is feeling much improved. Laying comfortably in bed, denies chest pain, shortness of breath, fever, chills, or weakness. No complaints. 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 REVIEW OF SYSTEMS: All other systems are negative except those mentioned in the HPI PHYSICAL EXAMINATION: GENERAL: The patient is alert and oriented x3, not in any acute distress. Well developed, well nourished. HEENT: Pupils are round and equally reacting to light. EOMI. No scleral icterus. No conjunctival pallor. Normocephalic, atraumatic. No pharyngeal erythema. No thyromegaly. CARDIOVASCULAR: S1 and S2 present. No murmurs, rubs, or gallops. PULMONARY: Chest is clear to auscultation, no wheezing or crackles. ABDOMEN: Soft, nontender, nondistended, normoactive bowel sounds. No palpable organomegaly. MUSCULOSKELETAL: No joint swelling or deformity. EXTREMITIES: No cyanosis, clubbing, or pedal edema. NEUROLOGICAL: Gross neurological examination did not reveal any focal deficits. SKIN: No rashes. Assessment and plan -Acute non-ST elevation myocardial infarction: Patient is status post cardiac catheterization and stenting to distal RCA. Patient is on aspirin Brilinta, PIERRE inhibitor, Lipitor, beta-lorraine. And another cath today - Elevated blood sugars patient is probably diabetic which was undiagnosed patient will be continued on sliding scale insulin will obtain hemoglobin A1c - Hypertension - Hyperlipidemia DVT prophylaxis: Heparin Objective - Vital Signs Vital signs: Vital Signs Temp 97.7 F 01/17/25 03:28 Pulse 73 01/17/25 03:28 Resp 18 01/17/25 03:28 BP 118/72 01/17/25 03:28 Pulse Ox 98 01/17/25 03:28 FiO2 100 01/15/25 12:00 Intake & Output 01/16/25 01/17/25 01/17/25 18:59 06:59 18:59 Intake Total 354 Balance 354 Weight 102.4 kg 102.1 kg Intake: Oral 354 Other: Voiding Method Toilet Toilet Urinal Urinal # Voids 2 1 - Labs CBC & Chem 7: 01/17/25 07:30 01/17/25 07:30 Labs: Abnormal Lab Results - Last 24 Hours (Table) 01/16/25 01/16/25 01/16/25 Range/Units 11:24 16:25 20:09 RBC (4.40-5.60) 10*6/uL Hct (39.6-50.0) % MCH (27.0-32.0) pg Immature Gran # (0.00-0.04) 10*3/uL Sodium (137-145) mmol/L BUN (9-20) mg/dL Creatinine (0.66-1.25) mg/dL Glucose (74-99) mg/dL POC Glucose (mg/dL) 304 H 309 H 257 H (70-110) mg/dL 01/17/25 01/17/25 01/17/25 Range/Units 06:11 07:30 07:30 RBC 4.23 L (4.40-5.60) 10*6/uL Hct 38.8 L (39.6-50.0) % MCH 32.4 H (27.0-32.0) pg Immature Gran # 0.05 H (0.00-0.04) 10*3/uL Sodium 136 L (137-145) mmol/L BUN 8 L (9-20) mg/dL Creatinine 0.54 L (0.66-1.25) mg/dL Glucose 237 H (74-99) mg/dL POC Glucose (mg/dL) 221 H (70-110) mg/dL
[2025-01-17] MEDS: fentaNYL (PF) 50 MCG/ML 2 ML AMP IVP ONE (14:28)
[2025-01-17] MEDS: MIDAZOLAM 2 MG/2 ML VIAL IVP ONE ×2 (14:28→14:32)
[2025-01-17] MEDS: LIDOCAINE 1% INJ 10MG/ML (20 ML MDV) SQ ONE (14:30)
[2025-01-17] MEDS: VERAPAMIL SYRINGE (5 MG/10 ML) INTRAARTER ONE (14:31)
[2025-01-17] MEDS: HEPARIN SODIUM 1,000 UN/ML (10ML VL) IVP ONE ×4 (14:32→15:42)
[2025-01-17] MEDS: IOPAMIDOL-370 100ML BTL INJ ONE (15:17)
[2025-01-17] MEDS: NITROGLYCERIN 1000MCG/10ML SYRINGE INTRACORON ONE (15:17)
[2025-01-17] MEDS: IOPAMIDOL-370 100ML BTL INTRATHECA ONE (15:35)
[2025-01-17] MEDS: HEPARIN SODIUM,PORCINE (1 ML) 2,500 UNIT in SODIUM CHLORIDE 0.9% 250 ML IRRIGATION ONE (15:37)
[2025-01-17] MEDS: HEPARIN SODIUM,PORCINE 10,000 UNIT in SODIUM CHLORIDE 0.9% 1,000 ML IRRIGATION ONE (15:37)
[2025-01-17] MEDS: SODIUM CHLORIDE 0.9% 1,000 ML IV ONE (15:37)
[2025-01-17] MEDS ORDERED: RX INFO: IV CONTRAST WAS GIVEN 1 EACH MISC MISCELLANE PRN (15:41)
[2025-01-17 16:04] LABS: Cholesterol 230.00 mg/dL (0.00-200.00); HDL Cholesterol 30.90 mg/dL (40.00-60.00); LDL Cholesterol,Calculated 156.3 mg/dL (0.0-131.0); Triglycerides 214.00 mg/dL (0.00-149.00); VLDL Calculation 42.80 mg/dL (5.00-40.00)
[2025-01-17 16:54] LABS: Glucose,Whole Blood 201 mg/dL (70-110)
[2025-01-17 20:08] LABS: Glucose,Whole Blood 275 mg/dL (70-110)
[2025-01-18 06:39] LABS: Glucose,Whole Blood 199 mg/dL (70-110)
[2025-01-18 07:31] LABS: Basophils # (A) 0.09 10*3/uL (0.00-0.10); Basophils % (A) 1.1 %; Eosinophils # (A) 0.23 10*3/uL (0.04-0.35); Eosinophils % (A) 2.8 %; HCT 41.0 % (39.6-50.0); HGB 14.1 g/dL (13.0-17.0); Lymphocytes # (A) 1.85 10*3/uL (0.90-5.00); Lymphocytes % (A) 22.5 %; MCH 31.8 pg (27.0-32.0); MCHC 34.4 g/dL (32.0-37.0); MCV 92.3 fL (80.0-97.0); Monocytes # (A) 0.98 10*3/uL (0.20-1.00); Monocytes % (A) 11.9 %; Neutrophils # (A) 5.03 10*3/uL (1.80-7.70); Neutrophils % (A) 61.1 %; Platelet Count 174 10*3/uL (140-440); RBC 4.44 10*6/uL (4.40-5.60); RDW 13.2 % (11.5-14.5); WBC 8.23 10*3/uL (4.50-10.00)
[2025-01-18 07:49] LABS: African American GFR (CKD) >90 (>60 ml/min/1.73 sqM); Anion Gap 8 mmol/L; Blood Urea Nitrogen 6 mg/dL (9-20); Calcium 8.9 mg/dL (8.4-10.2); Carbon Dioxide 25 mmol/L (22-30); Chloride 104 mmol/L (98-107); Glucose 190 mg/dL (74-99); Non-African American GFR(CKD) >90 (>60 ml/min/1.73 sqM); Potassium 4.0 mmol/L (3.5-5.1); Sodium 137 mmol/L (137-145)
[2025-01-18] MEDS: DAPAGLIFLOZIN PROPANEDIOL 10 MG TABLET PO SCH (09:20)
[2025-01-18 10:57] VITALS: BP 121/78; PULSE 70; RESP 16; TEMP 97.9
[2025-01-18 11:33] LABS: Glucose,Whole Blood 196 mg/dL (70-110)
--- NOTE | 2025-01-18 11:36 | P.PRCINT ---
Percutaneous Coronary Int. - Percutaneous Coronary Intervention Percutaneous Coronary Intervention: PROCEDURES PERFORMED: Left coronary angiography, ultrasound guided arterial access, PCI mid LAD with 3.5 x 23 mm Xience drug-eluting stent, postdilated with 3.5 mm noncompliant balloon, balloon angioplasty diagonal 1 branch with 2.5 mm balloon, intravascular ultrasound LAD INDICATION: Staged PCI CONSENT:I have discussed the risks, benefits and alternative therapies for the above-mentioned procedure and for both sedation/analgesia as well as necessary blood product administration, if indicated, as they pertain to this patient. The patient has indicated understanding and acceptance of the risks and procedures discussed. PROCEDURE: After the risks, benefits and alternatives of the above mentioned procedure explained in detail with the patient, informed consent was obtained. Patient was taken to the catheterization lab and prepped and draped in usual fashion. Ultrasound guidance was used to assess for arterial access. 1% lidocaine was used to anesthetize the right radial artery. A 6-Ugandan sheath was placed in the right radial artery using modified Seldinger technique and ultrasound guidance. The decision was made to perform PCI of the LAD. A 6 Ugandan CLS 4.0 guide was used to engage the left main. A 0.014 BMW wire was advanced into the diagonal 1 branch and a 0.014 whisper wire was advanced into the distal LAD. Predilation was performed of both the diagonal and LAD with a 2.5 mm balloon. Intravascular ultrasound was performed which showed diffuse disease throughout the entire artery and some aneurysmal portion just after the diagonal 1 branch. There was diffuse disease of the distal LAD and good landing spot just proximal to this portion with reference vessel 3.5 mm. The diagonal 1 branch was again dilated with a 2.5 mm noncompliant balloon. A 3.5 x 23 mm drug-eluting stent was placed in the mid LAD. The stent was postdilated with a 3.5 mm noncompliant balloon. There was some angulation and the artery became smaller caliber with diffuse disease noted on intravascular ultrasound however on intravascular ultrasound there was no dissection and appeared similar to pre-PCI. Final angiograms were performed. Preintervention there was 95% stenosis and BING-3 flow and pos tintervention there was less than 10% stenosis and BING-3 flow. The right radial sheath was removed and a TR band was placed with hemostasis achieved. The patient tolerated the procedure well. Patient was transported back to the post catheterization holding area in stable condition. Conscious Sedation: Patient was monitored under the direct supervision of myself for conscious sedation using Versed and fentanyl for a total duration of 66 minutes HEMODYNAMICS: Ao: 108/71 SELECTIVE CORONARY ARTERIOGRAPHY: LEFT MAIN: The left main is a large caliber vessel which bifurcates into the LAD and circumflex. There is distal left main 30-40% stenosis. LEFT ANTERIOR DESCENDING CORONARY ARTERY: LAD is a large caliber vessel which wraps around to the apex. There is diffuse disease of the proximal and mid LAD with more focal mid LAD 95% stenosis at the site of a moderate caliber diagonal 1 branch. Otherwise there is mild diffuse 20 to 30% stenosis. LEFT CIRCUMFLEX CORONARY ARTERY: Left circumflex is a moderate caliber vessel with 30 to 40% stenosis. There are [id number] collaterals to the PLV RIGHT CORONARY ARTERY: The right coronary artery was not imaged, see separate report FINAL IMPRESSION: 1. CAD as described above including left main 30 to 40% stenosis, mid LAD 95% stenosis, circumflex 30 to 40% stenosis. 2. Status post PCI mid LAD with 3.5 x 23 mm Xience drug-eluting stent, postdilated with 3.5 mm noncompliant balloon, balloon angioplasty diagonal 1 branch with 2.5 mm balloon PLAN: 1. Aggressive risk factor modification per most recent ACC/AHA guidelines. 2. Continue dual antiplatelets with aspirin and Brilinta for 12 months 3. Tobacco cessation discussed in detail with patient. Gave patient information on [employer] quit line 4. Goal LDL less than 70
--- NOTE | 2025-01-18 13:07 | P.PN ---
Subjective Progress Note Date: 01/18/25 HISTORY OF PRESENTING ILLNESS This is a pleasant 54-year-old with past medical history significant for CAD status post PCI with NE 2013, hypertension, hyperlipidemia. He presents secondary to acute onset of chest pain radiating to his neck and down his left arm with associated shortness of breath and diaphoresis. This occurred when he was walking and approximately 20 minutes prior to arrival. He admits this felt somewhat similar to his prior NE. He denies any other symptoms recently and denies any fevers, chills, cough. EKG showed sinus tachycardia with diffuse ST depressions V4 through V6. Initially was improved to a 3 with giving nitroglycerin and metoprolol. Additionally his heparin pressures 60s over 100. He is still having ongoing chest pain. Troponin 0.3, creatinine 0.7, hemoglobin 15. He states he has not been taking any of his medications over the last 3 years. He is diabetic and does not take medications. He states he ran out a few years ago and then never started taking them again. He does not follow with a doctor. He states he has been having off-and-on symptoms over the last 1 year usually mostly with exertion however over the last 2 weeks has been having more episodes. He does smoke 2 packs/day. Progress note 01/16/2025 Seen and examined at bedside this a.m. He underwent PCI of RCA yesterday. The heart cath did show residual 95% stenosis in mid LAD. At this time he reports feeling much better since the time of admission. No recurrent chest pain. He i s ambulating in the unit. Blood pressure heart rate are controlled with SBP 127/78, heart rate 75 bpm. Labs shows hemoglobin 13, BUN 9, creatinine 0.6. 01/18/2025 Underwent PCI yesterday to LAD. No postop complication. Right radial site is intact with good pulse and no hematoma no swelling. Blood pressure heart rate are good, hemodynamically stable. Echo shows preserved LVEF with no significant regional wall motion abnormality PHYSICAL EXAMINATION HEENT: Head is normocephalic. Pupils are equal, round. Sclerae anicteric. Mucous membranes of the mouth are moist. No JVD. No carotid bruit. CHEST EXAMINATION: Lungs are clear to auscultation. No chest wall tenderness is noted on palpation or with deep breathing. HEART EXAMINATION: Regular rate and rhythm. S1, S2 heard. No murmurs, gallops or rub. ABDOMEN: Soft, nontender. Positive bowel sounds. EXTREMITIES: 2+ peripheral pulses, no lower extremity edema and no calf tenderness. NEUROLOGIC EXAMINATION: Patient is awake, alert and oriented x3. ASSESSMENT Non-STEMI with ongoing chest pain. Status post PCI to distal RCA. Residual 95% mid LAD stenosis CAD status post PCI 2012 Hypertension Hyperlipidemia Diabetes mellitus type 2 Noncompliance Tobacco abuse Family history of CAD PLAN Continue aspirin, Lipitor, Brilinta Continue metoprolol 25 twice daily Losartan 12.5 mg daily, metformin 500 twice daily, Farxiga 10 mg daily Outpatient follow with Dr. Billingsley. Detailed instructions given not to interrupt antiplatelets without informing cardiology. Detailed smoking cessation counseling provided with providing [employer] quit line information Objective - Vital Signs Vital signs: Vital Signs Temp 97.9 F 01/18/25 08:00 Pulse 70 01/18/25 08:00 Resp 16 01/18/25 08:00 BP 121/78 01/18/25 08:00 Pulse Ox 99 01/18/25 08:00 FiO2 100 01/15/25 12:00 Intake & Output 01/17/25 01/18/25 01/18/25 18:59 06:59 18:59 Intake Total 1436 816 Balance 1436 816 Weight 102.7 kg Intake: IV 200 816 Sodium Chloride 0.9% 1, 816 000 ml In Empty Bag 1 bag @ 1 ML/KG/HR 102.1 mls/ hr IV .Q9H48M [facility] Rx#: [id number] Intake, IV Titration 1000 Amount Sodium Chloride 0.9% 1, 1000 000 ml In Empty Bag 1 bag @ 1 ML/KG/HR 102.1 mls/ hr IV .Q9H48M [facility] Rx#: [id number] Oral 236 Other: Voiding Method Toilet Toilet # Voids 2 - Labs CBC & Chem 7: 01/18/25 07:16 01/18/25 07:16 Labs: Abnormal Lab Results - Last 24 Hours (Table) 01/17/25 01/17/25 01/17/25 Range/Units 07:30 16:53 20:05 Immature Gran # (0.00-0.04) 10*3/uL BUN (9-20) mg/dL Creatinine (0.66-1.25) mg/dL Glucose (74-99) mg/dL POC Glucose (mg/dL) 201 H 275 H (70-110) mg/dL Triglycerides 214.00 H (0.00-149.00) mg/dL Cholesterol 230.00 H (0.00-200.00) mg/dL LDL Cholesterol, Calc 156.3 H (0.0-131.0) mg/dL VLDL Cholesterol, Calc 42.80 H (5.00-40.00) mg/dL HDL Cholesterol 30.90 L (40.00-60.00) mg/dL 01/18/25 01/18/25 01/18/25 Range/Units 06:37 07:16 07:16 Immature Gran # 0.05 H (0.00-0.04) 10*3/uL BUN 6 L (9-20) mg/dL Creatinine 0.53 L (0.66-1.25) mg/dL Glucose 190 H (74-99) mg/dL POC Glucose (mg/dL) 199 H (70-110) mg/dL Triglycerides (0.00-149.00) mg/dL Cholesterol (0.00-200.00) mg/dL LDL Cholesterol, Calc (0.0-131.0) mg/dL VLDL Cholesterol, Calc (5.00-40.00) mg/dL HDL Cholesterol (40.00-60.00) mg/dL 01/18/25 Range/Units 11:32 Immature Gran # (0.00-0.04) 10*3/uL BUN (9-20) mg/dL Creatinine (0.66-1.25) mg/dL Glucose (74-99) mg/dL POC Glucose (mg/dL) 196 H (70-110) mg/dL Triglycerides (0.00-149.00) mg/dL Cholesterol (0.00-200.00) mg/dL LDL Cholesterol, Calc (0.0-131.0) mg/dL VLDL Cholesterol, Calc (5.00-40.00) mg/dL HDL Cholesterol (40.00-60.00) mg/dL
[2025-01-19] MEDS ORDERED: metFORMIN 500 MG TAB PO SCH (17:30)
--- NOTE | 2025-01-26 11:08 | P.DS ---
Providers Date of admission: 01/15/25 01:45 Expected date of discharge: 01/18/25 (Note unsigned) Attending physician: Saurav Mitchell Consults: 01/15/25 01:57 Consult Physician Routine Consulting Provider: Keya Mcmillan Consult Reason/Comments: Post Interventional Patient Do you want consulting provider notified?: Already Contacted 01/17/25 15:42 Consult Physician Routine Consulting Provider: Keya Mcmillan Consult Reason/Comments: Post Interventional Patient Do you want consulting provider notified?: Already Contacted Primary care physician: Aida Hopkins Hospital Course: Discharge Diagnosis: Non-STEMI with ongoing chest pain. Status post PCI to distal RCA. Residual 95% mid LAD stenosis CAD status post PCI 2012 Hypertension Hyperlipidemia Diabetes mellitus type 2 Tobacco abuse Hospital Course: 54-year-old male came with complaints of chest pain which is typical in nature patient has EKG findings from V4-V6 which is ST depressions. Patient has mildly elevated troponin of 0.342. Because of continued chest pain patient was taken to [facility] and was found to have left main 40% stenosis and mid LAD 95% stenosis at bifurcation, 99% stenosis of RCA 100% PLV stenosis with [id number] collaterals. Patient underwent a PCI of distal RCA into PDA. Patient is presently on dual antiplatelet therapy statin PIERRE inhibitor. Pt was admitted to medical team with consults to cardiology and plan for staged intervention. Patient had history of coronary artery disease but never had any stents in the past. Patient does smoke and extensive smoking cessation counseling was provided. He recieved further staged intervention and tolerated procedure well, dual antiplatelet therapy was started as well as Losartan 12.5 mg daily, metformin 500 twice daily, Farxiga 10 mg daily. He has been medically optimized and hemodynamically stable at time of discharge. He is discharged with new home medication and followup with cardiology anf PCP within the week. Pt seen and examined at bedside: He is feeling extremely well, has no further symptoms and feels ready to go home Vital signs reveiwed and stable: General: non toxic, no distress, appears at stated age, normal weight Derm: no unusual rashes/lesions, warm Head: atraumatic, normocephalic, symmetric Eyes: EOMI, no lid lag, anicteric sclera, pupils equal round reactive to light ENT: Nose and ears atraumatic Neck: No cervical lymphadenopathy, trachea midline, supple Mouth: no lip lesion, mucus membranes moist Cardiovascular: S1S2 reg, no murmur, positive dorsalis pedis pulse bilateral, no edema Lungs: Decreased air entry bilaterally, no rhonchi, no rales, no accessory muscle use Abdominal: soft, nontender to palpation, no guarding Ext: muscle strength 5 out of 5 in all 4 extremities grossly, no gross muscle atrophy, no contractures, Neuro: CN II-XI grossly intact, no gross focal neuro deficits Psych: Alert, oriented, appropriate affect A total of 30 minutes were spent preparing this complex discarge summary. Patient was discharged on 01/18/2025. Plan - Discharge Summary Discharge Rx Participant: Yes New Discharge Prescriptions: New Aspirin 81 mg PO DAILY tab metFORMIN HCL [Glucophage] 500 mg PO BID-W/MEALS 7 Days #14 tab Atorvastatin [Lipitor] 80 mg PO DAILY 7 Days #7 tab Metoprolol Tartrate [Lopressor] 25 mg PO BID 7 Days #14 tab Ticagrelor [Brilinta] 90 mg PO BID 7 Days #14 tab Losartan [Cozaar] 12.5 mg PO DAILY 7 Days #7 tab Dapagliflozin Propanediol [Farxiga] 10 mg PO DAILY 7 Days #7 tab Nitroglycerin Sl Tabs [Nitrostat] 0.4 mg SUBLINGUAL Q5M PRN #10 tab PRN Reason: Chest Pain Discharge Medication List Aspirin 81 mg PO DAILY tab 01/18/25 [Rx] Atorvastatin [Lipitor] 80 mg PO DAILY 7 Days #7 tab 01/18/25 [Rx] Dapagliflozin Propanediol [Farxiga] 10 mg PO DAILY 7 Days #7 tab 01/18/25 [Rx] Losartan [Cozaar] 12.5 mg PO DAILY 7 Days #7 tab 01/18/25 [Rx] Metoprolol Tartrate [Lopressor] 25 mg PO BID 7 Days #14 tab 01/18/25 [Rx] Nitroglycerin Sl Tabs [Nitrostat] 0.4 mg SUBLINGUAL Q5M PRN #10 tab 01/18/25 [Rx] Ticagrelor [Brilinta] 90 mg PO BID 7 Days #14 tab 01/18/25 [Rx] metFORMIN HCL [Glucophage] 500 mg PO BID-W/MEALS 7 Days #14 tab 01/18/25 [Rx] Follow up Appointment(s)/Referral(s): Aida Hopkins MD [Primary Care Provider] - 01/25/25 1:45 pm Samuel Billingsley DO [STAFF PHYSICIAN] - 1 Week (Office will call you with appointment date and time ) Patient Instructions/Handouts: Heart Catheterization (DC) Discharge Disposition: HOME SELF-CARE
== END 2025-01-18 13:34 | disposition home or self-care (01) | DRG 322 ==
LOC: EC 22:38 → 2SICU 01-15 01:45 → 3SCARD 01-15 14:17
PROVIDERS: ADMIT Hospitalist; ATTEND Hospitalist
PROC: B240ZZ3 Ultrasonography of Single Coronary Artery, Intravascular (ICD-10-PCS; principal; 2025-01-15 00:36)
PROC: 027034Z Dilation of Coronary Artery, One Artery with Drug-eluting Intraluminal Device, Percutaneous Approach (ICD-10-PCS; principal; 2025-01-15 00:36)
PROC: 02C03ZZ Extirpation of Matter from Coronary Artery, One Artery, Percutaneous Approach (ICD-10-PCS; principal; 2025-01-15 00:36)
PROC: B2111ZZ Fluoroscopy of Multiple Coronary Arteries using Low Osmolar Contrast (ICD-10-PCS; principal; 2025-01-15 00:36)
PROC: 4A023N7 Measurement of Cardiac Sampling and Pressure, Left Heart, Percutaneous Approach (ICD-10-PCS; principal; 2025-01-15 00:36)
PROC: 027034Z Dilation of Coronary Artery, One Artery with Drug-eluting Intraluminal Device, Percutaneous Approach (ICD-10-PCS; 2025-01-17 07:30)
PROC: B240ZZ3 Ultrasonography of Single Coronary Artery, Intravascular (ICD-10-PCS; 2025-01-17 07:30)
PROC: B2111ZZ Fluoroscopy of Multiple Coronary Arteries using Low Osmolar Contrast (ICD-10-PCS; 2025-01-17 07:30)
DX: I21.4 Non-ST elevation (NSTEMI) myocardial infarction (principal); E11.65 Type 2 diabetes mellitus with hyperglycemia; I10 Essential (primary) hypertension; I25.10 Atherosclerotic heart disease of native coronary artery without angina pectoris; E78.5 Hyperlipidemia, unspecified; F17.210 Nicotine dependence, cigarettes, uncomplicated; Z91.199 Patient's noncompliance with other medical treatment and regimen due to unspecified reason; I25.2 Old myocardial infarction; Z79.02 Long term (current) use of antithrombotics/antiplatelets; Z79.82 Long term (current) use of aspirin; Z79.899 Other long term (current) drug therapy; Z71.6 Tobacco abuse counseling; Z88.1 Allergy status to other antibiotic agents
CPT/HCPCS: 36415; 71045; 80048; 80053; 80061; 83036; 83735; 84443; 84484; 85025; 85027; 85610; 85730; 92973; 92978; 93005; 93306; 93458; 96365; 96366; 96368; 96375; 99291